=== PATIENT | female | born 1940 | race American Indian/Alaskan Native ===

== ENCOUNTER 2020-11-30 13:27 | Outpatient (CLI) | payer MEDICARE ==
--- NOTE | 2020-11-30 14:59 | Cat Scan Report ---
CT ABDOMEN AND PELVIS WITHOUT CONTRAST INDICATION / CLINICAL INFORMATION: URINARY TRACT INFECTION. TECHNIQUE: Axial CT images were obtained through the abdomen and pelvis without IV contrast. Sagittal and gibson l reformatted images. All CT scans at this location are performed using CT dose reduction for ALARA b y means of automated exposure control. COMPARISON: None available. FINDINGS: LOWER CHEST: No significant abnormality. LIVER: No significant abnormality. GALLBLADDER: Surgically removed BILE DUCTS: No significant abnormality. PANCREAS: No significant abnormality. SPLEEN: No significant abnormality. ADRENALS: No significant abnormality. RIGHT KIDNEY and URETER: No significant abnormality. LEFT KIDNEY and URETER: No significant abnormality. STOMACH and SMALL BOWEL: No significant abnormality. COLON: No significant abnormality. APPENDIX: Not identified PERITONEUM: No free fluid. No free air. No fluid collection. LYMPH NODES: No significant adenopathy. AORTA and ARTERIES: Moderate to severe calcific plaques are noted throughout the abdominal aorta and iliac arteries and to a lesser extent the SMA. No aneurysm. IVC and VEINS: No significant abnormality. URINARY BLADDER: Views of the bladder slightly limited due to artifact from right hip replacement. Th e bladder is grossly normal. No findings to suggest cystitis. REPRODUCTIVE ORGANS: Hysterectomy. ADDITIONAL FINDINGS: None. SKELETAL SYSTEM: The bony structures are osteopenic. Mild to moderate multilevel lumbar spondylosis i s noted. Right hip replacement appears intact. No acute bony findings are appreciated. IMPRESSION: No acute process is appreciated. Unremarkable kidneys, ureters and bladder. Moderate to severe atherosclerotic disease as described. Osteopenia and degenerative changes in the lumbar spine. Hysterectomy, cholecystectomy and assumed appendectomy. Signer Name: Yoav Reid Jr, MD Signed: 11/30/2020 2:54 PM Workstation Name: [id number]
== END 2020-11-30 13:28 | disposition home or self-care (01) ==
LOC: SPVIMAG 13:27
PROVIDERS: ATTEND Urology
DX: N39.0 Urinary tract infection, site not specified (principal); M47.816 Spondylosis without myelopathy or radiculopathy, lumbar region; I70.0 Atherosclerosis of aorta; Z90.49 Acquired absence of other specified parts of digestive tract; Z96.641 Presence of right artificial hip joint; Z90.710 Acquired absence of both cervix and uterus
CPT/HCPCS: 74176